=== PATIENT | male | born 1955 | race Caucasian/White ===

== ENCOUNTER 2024-03-01 17:38 | Inpatient (IN) | payer OTHER, SELFPAY ==
[2024-03-01] VITALS (14 sets, daily range): BP systolic 148–171; BP diastolic 74–116; BMI 29.7
--- NOTE | 2024-03-01 10:56 | ED.GENMED ---
History of Present Illness
General
Chief Complaint: Abdominal Pain
Source: patient
Exam Limitations: none
Time Seen by Provider: 03/01/24 10:25
History of Present Illness
History of Present Illness:
68-year-old male presents complaining of onset of mid and upper abdominal pain with associated vomiting. This started after having a rich meal yesterday. The pain is diffuse across the upper abdomen does not radiate to the back without chest pain.
No fever. He did note that when he was vomiting he noticed the vomit to be dark in color. He denies any dark or tarry stools. No fevers. No known sick contacts. No other complaints at this time. He admits to drinking a drink a day and 2 cups
of coffee a day. He does not use NSAIDs regularly
Phy Exam
Physical Exam
Physical Exam:
General: Slightly uncomfortable appearing male no acute respiratory distress
HEENT: Normocephalic atraumatic
Heart: Regular rate and rhythm no murmurs
Lungs: Clear no wheeze
Abdomen soft tender in the epigastric region negative Longo sign no guarding rebound normal bowel sounds nondistended no costovertebral angle tenderness
Extremities: No cyanosis
Course
Orders/Labs/Results
Orders:
Orders
03/01/24 09:54
ECG [Electrocardiogram (*1)] Urgent
Reason for Study: Abdominal Pain
EKG- Treatment ONCE
03/01/24 10:54
Famotidine [Pepcid] 20 mg IV NOW STA
US Abdomen Complete/Upper Urgent
Comment:
Reason For Exam: epigastric pain
03/01/24 10:59
Ondansetron Injectable [Zofran] 4 mg IV NOW STA
03/01/24 11:15
Complete Blood Count/With Diff Urgent
Comprehensive Metabolic Panel Urgent
Lipase Urgent
03/01/24 13:08
CT Abd/pelvis W Iv Cont Urgent
Comment:
Reason For Exam: mid abdominal pain
0.9% Sodium Chloride 1000 ml [Nss] 1,000 ml IV BOLUS
03/01/24 13:56
HYDROmorphone [Dilaudid] 0.5 mg IV NOW STA
03/01/24 16:24
HYDROmorphone [Dilaudid] 0.5 mg IV NOW STA
Ondansetron Injectable [Zofran] 4 mg IV NOW STA
Abnormal Lab Results
03/01/24
11:15
MCH 32.5 H pg
(27.0-31.0)
Abs Immat Gran (auto) 0.1 H 10^3/uL
(0-0.05)
Absolute Neuts (auto) 8.5 H 10^3/uL
(1.4-6.5)
Absolute Lymphs (auto) 1.1 L 10^3/uL
(1.2-3.4)
Absolute Monos (auto) 0.7 H 10^3/uL
(0.1-0.6)
Neutrophils % 81.8 H %
(42.2-75.2)
Lymphocytes % 10.2 L %
(20.5-51.1)
Glucose 135 H mg/dl
(70-99)
Calcium 10.6 H mg/dl
(8.4-10.2)
Total Bilirubin 1.9 H mg/dl
(0.2-1.3)
03/01/24 11:15
03/01/24 11:15
Vital Signs
Initial and Last Documented VS:
Initial Vital Signs
Temp Pulse Resp BP Pulse Ox
98.3 F 83 18 148/91 96
03/01/24 09:52 03/01/24 09:52 03/01/24 09:52 03/01/24 09:52 03/01/24 09:52
Last Documented Vital Signs
Temp Pulse Resp BP Pulse Ox
98.3 F 71 15 162/92 93
03/01/24 09:52 03/01/24 11:30 03/01/24 11:30 03/01/24 11:00 03/01/24 11:30
MDM/Problems Addressed
Differential Diagnosis Includes:
Abdominal pain with vomiting. Consider gastritis or peptic ulcer disease versus biliary colic versus viral illness. Also consider pancreatitis.
EKG through triage shows sinus rhythm without ischemic changes. Will check labs including lipase. David Ramey ordered. Ultrasound pending
*Critical Care Note
Total Time (30-74mins, 75-104mins- exclusive of procedures): Not Applicable
ED Attending Note
-
Portions of this chart may have been created with voice recognition software.� Occasional wrong word or��sound alike� substitutions may have occurred due to the inherent limitations of voice recognition software.
Discharge Plan
Departure
Patient Disposition: Admit
Date of Disposition: 03/01/24
Time of Disposition: 16:29
Admit to: Telemetry
Presentation/result/management discussed w/ accepting MD/DO: Hospitalist
Discharge Problem:
Enteritis
Referrals:
Chad Aguilar MD [Family Provider] -
Interventions
Interventions:
*Risk Screen - Suicide Last Done: 03/01/24 09:52
*General Assessment Last Done: 03/01/24 09:52
*Neglect/Abuse Screening Last Done: 03/01/24 09:52
PG-Glwzmi-Lghhramlwb Assessment Last Done: 03/01/24 11:39
Discharge Date and Time
Print Language: LUXEMBOURGER
[2024-03-01] MEDS: ZOFRAN 4 MG IV ×2 (11:15→16:30)
[2024-03-01] MEDS: PEPCID 20 MG IV (11:15)
[2024-03-01 12:02] LABS: ALT (SGPT) 30 U/L (0-50); AST (SGOT) 29 U/L (17-59); Albumin 4.7 g/dl (3.5-5.0); Alkaline Phosphatase 96 U/L (38-126); Blood Urea Nitrogen 17 mg/dl (9-20); Calcium 10.6 mg/dl (8.4-10.2); Carbon Dioxide 30 mmol/L (22-30); Chloride 100 mmol/L (98-107); Glucose 135 mg/dl (70-99); Lipase 63 U/L (23-300); Sodium 139 mmol/L (135-145); Total Bilirubin 1.9 mg/dl (0.2-1.3); Total Protein 7.4 g/dl (6.3-8.2); eGFR > 60.00
[2024-03-01 12:08] LABS: % Basophils 0.4 % (0-2); % Eosinophils 0.1 % (0-6); % Immature Granulocytes 0.5 % (0-0.5); % Lymphocytes 10.2 % (20.5-51.1); % Neutrophils 81.8 % (42.2-75.2); Absolute Immature Granulocytes 0.1 10^3/uL (0-0.05); Absolute Lymphocytes 1.1 10^3/uL (1.2-3.4); Absolute Monocytes 0.7 10^3/uL (0.1-0.6); Absolute Neutrophils 8.5 10^3/uL (1.4-6.5); Hematocrit 46.6 % (39.0-52.0); Hemoglobin 16.9 g/dL (13.0-18.0); Mean Corp Hgb Conc. 36.3 g/dL (33.0-37.0); Mean Corpuscular Hgb 32.5 pg (27.0-31.0); Mean Corpuscular Volume 89.6 fL (80.0-94.0); Mean Platelet Volume 9.7 fL (7.4-10.4); Nucleated Red Blood Cells % 0 % (-); Platelet Count 235 10^3/uL (130-400); Red Cell Dist. Width 12.8 % (11.5-14.5); White Blood Cell Count 10.4 10^3/uL (4.8-10.8)
[2024-03-01] MEDS: NSS 1000 IV ×2 (13:49→18:31)
[2024-03-01] MEDS: DILAUDID 0.5 MG IV ×4 (14:05→22:36)
--- NOTE | 2024-03-01 17:03 | HPS.HSE ---
Family Physician
-
Family Physician: Chad Aguilar
Chief Complaint
-
abdominal pain
History of Present Illness
68-year-old male past medical history of GERD presenting with mid and upper abdominal pain associated with vomiting since last night. Patient had a large meal at a restaurant yesterday with multiple other family members and had [place] sprouts
with Pasta and crab. Since last night he had severe epigastric pain and multiple episodes of vomiting of dark coffee-ground material. He also had loose stools and watery diarrhea yesterday and today without any blood in the stool or black stool.
He has also been burping a lot since yesterday with hiccups. Denies any shortness of breath. Did have some sweating with the vomiting.
He drinks 1-2 shots of vodka per day. He quit smoking 30 years ago. Denies regular NSAID use although he did have a tablet a few days ago for joint pain. He has recently been having indigestion recently a few times per week has been refusing to
take any medication for.
He traveled to [place] last month.
Denies any history of abdominal surgeries.
Medical History
Past Medical History
Past Medical History: Reports Other (GERD)
Past Surgical History: Reports None
Social History
Tobacco: Former Smoker
Alcohol: Daily
Drug: None
Family History
Family History: Not pertinent
Allergies / Home Medications
Allergies reflects when Allergies were last updated in [facility].
Home Medications with original date entered in [facility]
Allergy/Medication List:
Allergies
Allergy/AdvReac Type Severity Reaction Status Date / Time
No Known Allergies Allergy Verified 03/01/24 09:52
Review of Systems
-
History Source: Patient
A 12 point ROS was completed and negative except as noted: Yes
Constitutional: Reports No Symptoms
EENT: Reports No Symptoms
Respiratory: Reports No Symptoms
Cardiac: Reports No Symptoms
Abdomen/GI: Reports See HPI
: Reports No Symptoms
Musculoskeletal: Reports No Symptoms
Skin: Reports No Symptoms
Neurological: Reports No Symptoms
Endocrine: Reports No Symptoms
Hematologic/Lymphatic: Reports No Symptoms
Psych: Reports No Symptoms
Physical Exam
Vital Signs
Vital Signs
Temp Pulse Resp BP Pulse Ox
98.3 F 71 15 162/92 93
03/01/24 09:52 03/01/24 11:30 03/01/24 11:30 03/01/24 11:00 03/01/24 11:30
Physical Exam
General: Well Developed, Well Nourished and No Apparent Distress
HEENT: NormoCephalic, Moist mucous membranes and Atraumatic
Respiratory: Clear
Cardiac: S1/S2 and Regular Rhythm; No Murmur or Rub
GI: Soft, Non Distended, Normal Bowel Sounds and Tender (epigastric ); No Organomegaly
Rectal: Deferred by Provider
Musculoskeletal: No Clubbing, No Cyanosis and No Edema
Skin: No Rash
Neuro: Nonfocal/grossly intact
Laboratory Results
-
03/01/24 11:15
03/01/24 11:15
Laboratory Results
Total Bilirubin 1.9 mg/dl (0.2-1.3) H 03/01/24 11:15
AST 29 U/L (17-59) 03/01/24 11:15
ALT 30 U/L (0-50) 03/01/24 11:15
Alkaline Phosphatase 96 U/L (38-126) 03/01/24 11:15
Lipase 63 U/L (23-300) 03/01/24 11:15
Data Reviewed
-
Lab Data: Labs Reviewed by me
Old Records: Reviewed
Impression/Plan
-
IMPRESSION:
PLAN:
# Epigastric pain/coffee-ground emesis secondary to acute gastroenteritis with ileus/acute gastritis
# History of GERD
-Lipase unremarkable
-CT abdomen pelvis shows dilated air and fluid-filled proximal small bowel loops measuring up to 3.8 cm, no discrete transition point
-N.p.o.
-IV fluids
-Zofran, Dilaudid as needed
-Protonix 40 IV twice daily
-Check stool culture, C. difficile, ova and parasites
-GI consulted
Daily alcohol use
Former smoker
Full code
DVT prophylaxis�SCDs
N.p.o.
[2024-03-01] MEDS: NSS (PRESERVATIVE FREE) 10 ML IV (20:01)
[2024-03-01] MEDS: PROTONIX IV 40 MG IV (20:02)
[2024-03-02] MEDS: DILAUDID 0.5 MG IV (03:00)
[2024-03-02] MEDS: NSS 1000 IV ×2 (03:01→13:17)
[2024-03-02 07:50] VITALS: BP 146/87
[2024-03-02 08:22] LABS: % Basophils 0.6 % (0-2); % Eosinophils 2.2 % (0-6); % Immature Granulocytes 0.4 % (0-0.5); % Lymphocytes 25.6 % (20.5-51.1); % Monocytes 8.5 % (1.7-9.3); % Neutrophils 62.7 % (42.2-75.2); Absolute Basophils 0.1 10^3/uL (0-0.2); Absolute Eosinophils 0.2 10^3/uL (0-0.7); Absolute Monocytes 0.7 10^3/uL (0.1-0.6); Absolute Neutrophils 4.9 10^3/uL (1.4-6.5); Hemoglobin 14.4 g/dL (13.0-18.0); Mean Corp Hgb Conc. 34.3 g/dL (33.0-37.0); Mean Corpuscular Hgb 32.1 pg (27.0-31.0); Mean Corpuscular Volume 93.8 fL (80.0-94.0); Mean Platelet Volume 9.7 fL (7.4-10.4); Nucleated Red Blood Cells % 0 % (-); Platelet Count 190 10^3/uL (130-400); Red Blood Cell Count 4.48 10^6/uL (4.70-6.10); White Blood Cell Count 7.8 10^3/uL (4.8-10.8)
[2024-03-02 08:56] LABS: ALT (SGPT) 22 U/L (0-50); AST (SGOT) 24 U/L (17-59); Albumin 3.6 g/dl (3.5-5.0); Alkaline Phosphatase 73 U/L (38-126); Blood Urea Nitrogen 16 mg/dl (9-20); Carbon Dioxide 27 mmol/L (22-30); Chloride 107 mmol/L (98-107); Estimated Creatinine Clearance 70 ml/min; Glucose 89 mg/dl (70-99); Potassium 3.8 mmol/L (3.5-5.1); Sodium 140 mmol/L (135-145); Total Bilirubin 1.8 mg/dl (0.2-1.3); eGFR > 60.00
[2024-03-02] MEDS: NSS (PRESERVATIVE FREE) 10 ML IV ×2 (09:01→20:11)
--- NOTE | 2024-03-02 09:07 | CON.GI ---
Addendum entered and electronically signed by MARIAH Emmanuel 03/04/24 20:49:
clarification pt with likely Frieda addison tear on admission now resolved
Addendum entered and electronically signed by Tomasz Kelley MD 03/02/24 17:06:
I saw and examined the patient.
The CHEMICAL DEPENDENCY COUNSELOR or PA's note was reviewed and I agree with the note.
Comment: 68yo male presents with abd pain, vomiting after eating out at restaurant pasta, crab, brussel sprouts. Sx started about 6 hrs after eating. Had some dark emesis after recurrent vomiting. Prior to that he had no GI complaints. US shows
decompressed GB vs GBWT. CT shows dilated air and fluid-filled proximal SB loops up to 3.8cm c/w ileus/enteritis without obstruction. LFTs normal
REC:
Continue supportive care
check stool studies if available, check norovirus
Ok for clears and advance as tolerated
Monitor Hgb, would hold off on EGD if no further CGE- likely gastritis/Renee-Addison tear from vomiting that has resolved
US findings likely due to underdistention of GB. Consider further imaging if symptoms do not resolve
Addendum entered and electronically signed by MARIAH Emmanuel 03/02/24 10:53:
pt denies any recent travel. Prior travel to [place] in December
Original Note:
Consultation
-
Date/Time Consultation Requested: 03/01/24 [id number]
Date/Time Consultation Performed: 03/02/24 0900
Requesting Provider: Kassi Salinas MD
Performing Provider: MARIAH Bunch, Tomasz Kelley MD
Reason for Consultation: enteritis/ dark emesis
Medical History
Chief Complaint / HPI
Chief Complaint: nausea/vomiting/diarrhea
History of Present Illness:
Pt is a 68yo with hx GERD present with mid and upper abdominal pain with vomiting dark emesis. Pt ate large meal with brussel spouts, pasta and crab prior to onset. On admission lab with stable CBC and chemistry with mild, bili elevation of 1.8.
Ct suggest SB ileus/enteritis without obstruction and US with decompressed GB with no stones, acute cholecystitis, mild GBWT more likely non distention rather than acute cholecystis, no biliary dilation, pancreas not seen. In reviewing with patient
noted with sudden onset of symptoms and reports dark emesis with about 7-8 episode of large volume. He then noted bloating, increased upper abdominal pain and diarrhea. No hx prior GI issues and denies NSAID use. No hx EGD in past but prior
colonoscopy with family hx colon CA in father.
Pt denies odynophagia, dysphagia, GERD, blood or black in stools.
Past Medical History
Past Medical History: GERD (mild) and Other (ETOH use 1 glass daily, family hx colon CA, personal hx colon polyps )
Social History
Tobacco: Former Smoker
Alcohol: Daily (1 drink daily )
Drug: None
Personal:
Living: With Family
Employment: Retired
Family History
Family History: Other (father with colon CA in 40's)
Allergies / Home Medications
Allergy/AdvReac Type Severity Reaction Status Date / Time
No Known Allergies Allergy Verified 03/01/24 09:52
�Medication �Instructions �Recorded
azelastine 137 mcg (0.1 %) nasal 2 spray intranasal BID Congestion 03/01/24
spray
Review of Systems
-
History Source: Patient
Constitutional: Reports Fatigue
EENT: Reports No Symptoms
Respiratory: Reports No Symptoms
Cardiac: Reports No Symptoms
Abdomen/GI: Reports Abdominal Pain, Nausea, Vomiting (dark emesis ) and Diarrhea
Skin: Reports No Symptoms
Neurological: Reports Weakness
Endocrine: Reports No Symptoms
Hematologic/Lymphatic: Reports Bleeding (dark emesis )
Vital Signs
Temp Pulse Resp BP Pulse Ox
97.7 F 74 20 146/87 93
03/02/24 07:50 03/02/24 07:50 03/02/24 07:50 03/02/24 07:50 03/02/24 07:50
Physical Exam
Exam
General: Well Developed, Well Nourished and No Apparent Distress
HEENT: Normocephalic and Anicteric
Respiratory: Clear
Cardiac: Regular Rhythm
GI: Soft, Tender (mild) and Distended (mild )
Musculoskeletal: No Clubbing and No Cyanosis
Skin: Warm and Dry
Neuro: Awake, Alert and AO x 3
Psych: Calm
Results
WBC 7.8 10^3/uL (4.8-10.8) 03/02/24 06:57
Hgb 14.4 g/dL (13.0-18.0) 03/02/24 06:57
Hct 42.0 % (39.0-52.0) 03/02/24 06:57
MCV 93.8 fL (80.0-94.0) 03/02/24 06:57
Plt Count 190 10^3/uL (130-400) 03/02/24 06:57
Absolute Neuts (auto) 4.9 10^3/uL (1.4-6.5) 03/02/24 06:57
Sodium 140 mmol/L (135-145) 03/02/24 06:57
Potassium 3.8 mmol/L (3.5-5.1) 03/02/24 06:57
Chloride 107 mmol/L (98-107) 03/02/24 06:57
Carbon Dioxide 27 mmol/L (22-30) 03/02/24 06:57
BUN 16 mg/dl (9-20) 03/02/24 06:57
Creatinine 1.0 mg/dL (0.7-1.3) 03/02/24 06:57
Calcium 9.0 mg/dl (8.4-10.2) D 03/02/24 06:57
Total Bilirubin 1.8 mg/dl (0.2-1.3) H 03/02/24 06:57
AST 24 U/L (17-59) 03/02/24 06:57
ALT 22 U/L (0-50) 03/02/24 06:57
Alkaline Phosphatase 73 U/L (38-126) 03/02/24 06:57
Lipase 63 U/L (23-300) 03/01/24 11:15
Diagnostic Image Results:
03/01/24 US abdomen
1. Gallbladder is decompressed. No gallstones are seen. No suggestive of acute cholecystitis. Mild gallbladder wall thickening is more likely related to nondistention rather than acute cholecystitis.
2. No biliary ductal dilation.
3. Pancreas was not well visualized due to overlying bowel gas.
03/01/24 CT A/p with IV consult
1. Findings suggesting small bowel ileus/enteritis without vargas obstruction.
Prior GI Procedures:
EGD: none
Colonoscopy: Dr. Pisano hx polyps and family hx colon CA with screening every 5 years
Assessment / Plan
-
Pt is a 68yo with hx GERD present with mid and upper abdominal pain with vomiting dark emesis. Pt ate large meal with brussel spouts, pasta and crab prior to onset. On admission lab with stable CBC and chemistry with mild, bili elevation of 1.8.
Ct suggest SB ileus/enteritis without obstruction and US with decompressed GB with no stones, acute cholecystitis, mild GBWT more likely non distention rather than acute cholecystis, no biliary dilation, pancreas not seen. In reviewing with patient
noted with sudden onset of symptoms and reports dark emesis with about 7-8 episode of large volume. He then noted bloating, increased upper abdominal pain and diarrhea. No hx prior GI issues and denies NSAID use. No hx EGD in past but prior
colonoscopy with family hx colon CA in father.
-sudden onset of nausea/vomiting/abdominal pain and diarrhea
-CT with SB ileus/enteritis
-dark emesis
-hx mild GERD
-hx colon polyps
-family hx colon CA
PLAN:
etiology of symptoms with concern for acute gastroenteritis- norovirus vs other
pt with some improvement will trial sips of clears and supportive care
monitor for recurrent symptoms
check stools studies
add norovirus
if continued dark emesis consider EGD but hold for now current hbg 14.4
if ongoing symptoms consider OP MR enterography
follow up with Dr. Pisano know GI prior to admission
will follow
-
-
Thank you for consultation and allowing me to participate in the patient's care. Please call the material controller GI physician during the after hours with any questions or concerns.
[2024-03-02] MEDS: PROTONIX IV 40 MG IV ×2 (09:10→20:11)
--- NOTE | 2024-03-02 14:27 | W.PN.HOSP.TC ---
Today's Communication/Plan
-
progress to clear liquids
continue IVF
Assessment / Plan
Assessment / Plan
# Epigastric pain/coffee-ground emesis secondary to acute gastroenteritis with ileus/acute gastritis
chronic 'indigestion'/reflux
# History of GERD
-Lipase unremarkable
Abd US: 1. Gallbladder is decompressed. No gallstones are seen. No suggestive of acute cholecystitis. Mild gallbladder wall thickening is more likely related to nondistention rather than acute cholecystitis.
2. No biliary ductal dilation.
3. Pancreas was not well visualized due to overlying bowel gas.
-CT abdomen pelvis: Trace perihepatic ascites. No enlarged lymph nodes or free air. Dilated air and fluid-filled proximal small bowel loops measuring up to 3.8 cm. No discrete transition point with smooth tapering distally in the right lower
quadrant. Diverticulosis coli without evidence for diverticulitis. The bowel is without evidence of perforation or abscess.
-N.p.o. advance to clear liquid
-IV fluids
-Zofran, Dilaudid as needed
-Protonix 40 IV twice daily
-Check stool culture, C. difficile, ova and parasites, (no BM's yet today)
-GI consulted
Daily alcohol use
Former smoker
Full code
DVT prophylaxis�SCDs
Anticipated Discharge: 24 - 48 hours
Subjective/Interval History
-
Date of Service: March 02, 2024
No further vomiting
Objective Data
-
Labs:
Laboratory Results
03/02/24
06:57
WBC 7.8
Hgb 14.4
Hct 42.0
Plt Count 190
Sodium 140
Potassium 3.8
Chloride 107
Carbon Dioxide 27
BUN 16
Creatinine 1.0
Glucose 89
Calcium 9.0 D
Total Bilirubin 1.8 H
AST 24
ALT 22
Alkaline Phosphatase 73
Vital Signs:
Vital Signs
Temp Pulse Resp BP Pulse Ox
97.7 F 74 20 146/87 97
03/02/24 07:50 03/02/24 07:50 03/02/24 07:50 03/02/24 07:50 03/02/24 11:15
Review of Systems
-
History Source: Patient and Family ( at bedside)
Constitutional: Denies Fever
EENT: Reports No Symptoms Reported
Respiratory: Reports No Symptoms; Denies Cough
Cardiac: Reports No Symptoms
Abdomen/GI: Reports Nausea; Denies Abdominal Pain
Musculoskeletal: Reports No Symptoms
Physical Exam
-
General: Well Developed, Well Nourished and No Apparent Distress
HEENT: Normocephalic, Atraumatic and Moist Mucous Membranes
Respiratory: Clear to Auscultation; Negative Wheezes, Rales or Rhonchi
Cardiac: Regular Rhythm and S1/S2
GI: Soft, Nontender, Nondistended and Normal Bowel Sounds
Musculoskeletal: No Clubbing, No Cyanosis and No Edema
[2024-03-02 15:55] VITALS: BP 168/91
--- NOTE | 2024-03-02 16:09 | CM ---
Patient seen at bedside with present. Patient stated that he lives with his in a 3 story home. Patient with no needs anticipated at this time. Patient does not have any DME at home. Patient stated that he was independent of ADLs and IADL's
prior to admission. Patient PCP is Dr. Aguilar and he uses the [facility] in [place]. CM will continue to follow for discharge planning needs.
Plan; home with no needs anticipated at this time
--- NOTE | 2024-03-02 17:30 | PTCARENOTE ---
Pt advanced to clears; tolerating small amounts. Did complain of some belching, resolved on its own. No c/o pain or discomfort at present. No BM's this shift.
[2024-03-02] MEDS: MELATONIN 5 MG PO (22:28)
[2024-03-02 23:32] VITALS: BP 167/97
[2024-03-03] MEDS: NSS 1000 IV ×2 (00:11→10:36)
--- NOTE | 2024-03-03 03:15 | DOWNTIME ---
There was a [employer] Client [employer] Downtime on 03/03/2024 from 0100 to 03/03/2024 at 0252. Downtime documentation of patient's care, including medication administrations, has been reconciled in the electronic record per guidelines. Refer to the
patient's paper chart under the miscellaneous tab to see printed paper medication records and downtime forms.
--- NOTE | 2024-03-03 07:08 | W.PN.GI.CBS2 ---
Addendum entered and electronically signed by Tomasz Kelley MD 03/03/24 13:59:
I saw and examined the patient.
The CONTINGENTS SUPERVISOR or PA's note was reviewed and I agree with the note.
Comment: Tolerated solids for lunch without any problems. Denies abd pain
REC:
OK for d/c
Probable infectious enteritis that has resolved
Original Note:
Today's Communication / Plan
-
etiology of symptoms with concern for acute gastroenteritis- norovirus vs other
tolerated clear diet from yesterday afternoon and taking more this am-- will trial low residue diet today
monitor for recurrent symptoms
cbc stable comp pending
check stools studies including norovirus
monitor for recurrent dark emesis-- if recurrent of drop in hbg or recurrent vomiting consider EGD
if ongoing symptoms consider OP MR enterography with enteritis noted on CT
follow up with Dr. Pisano know GI prior to admission
will follow
Assessment / Plan
-
Pt is a 68yo with hx GERD present with mid and upper abdominal pain with vomiting dark emesis. Pt ate large meal with brussel spouts, pasta and crab prior to onset. On admission lab with stable CBC and chemistry with mild, bili elevation of 1.8.
Ct suggest SB ileus/enteritis without obstruction and US with decompressed GB with no stones, acute cholecystitis, mild GBWT more likely non distention rather than acute cholecystis, no biliary dilation, pancreas not seen. In reviewing with patient
noted with sudden onset of symptoms and reports dark emesis with about 7-8 episode of large volume. He then noted bloating, increased upper abdominal pain and diarrhea. No hx prior GI issues and denies NSAID use. No hx EGD in past but prior
colonoscopy with family hx colon CA in father.
-sudden onset of nausea/vomiting/abdominal pain and diarrhea
-CT with SB ileus/enteritis
-dark emesis
-hx mild GERD
-hx colon polyps
-family hx colon CA
PLAN:
etiology of symptoms with concern for acute gastroenteritis- norovirus vs other
tolerated clear diet from yesterday afternoon and taking more this am-- will trial low residue diet today
monitor for recurrent symptoms
CBC stable, comp pending
check stools studies including norovirus
monitor for recurrent dark emesis-- if recurrent of drop in hbg or recurrent vomiting consider EGD
if ongoing symptoms consider OP MR enterography with enteritis noted on CT
follow up with Dr. Pisano know GI prior to admission
will follow
Subjective
Subjective
Date of Service: March 03, 2024
on clear diet, no stools
Objective
Data Reviewed
Laboratory Data:
Laboratory Results
Total Bilirubin 1.8 mg/dl (0.2-1.3) H 03/02/24 06:57
AST 24 U/L (17-59) 03/02/24 06:57
ALT 22 U/L (0-50) 03/02/24 06:57
Alkaline Phosphatase 73 U/L (38-126) 03/02/24 06:57
Lipase 63 U/L (23-300) 03/01/24 11:15
Vital Signs and I&O:
Vital Signs
Temp Pulse Resp BP Pulse Ox
98.0 F 72 18 167/97 100
03/02/24 23:32 03/02/24 23:32 03/02/24 23:32 03/02/24 23:32 03/02/24 23:32
I&O
03/02/24 03/03/24 03/04/24
06:59 06:59 06:59
Intake Total 2339 / 2340
Balance 2340 / 2340
Physical Exam
Physical Exam
HEENT: Anicteric and Moist mucous membranes
Cardiology: Normal Sinus Rhythm
Pulmonary: Clear
GI: Soft, Non Distended and Non Tender
Extremities: No Edema
Neuro: Non Focal
[2024-03-03 08:00] VITALS: BP 176/93
[2024-03-03] MEDS: PROTONIX IV 40 MG IV (08:19)
[2024-03-03] MEDS: NSS (PRESERVATIVE FREE) 10 ML IV (08:19)
[2024-03-03 09:14] LABS: % Basophils 0.7 % (0-2); % Eosinophils 2.7 % (0-6); % Immature Granulocytes 0.7 % (0-0.5); % Lymphocytes 24.7 % (20.5-51.1); % Neutrophils 65.2 % (42.2-75.2); Absolute Basophils 0.1 10^3/uL (0-0.2); Absolute Eosinophils 0.2 10^3/uL (0-0.7); Absolute Immature Granulocytes 0.1 10^3/uL (0-0.05); Absolute Lymphocytes 1.7 10^3/uL (1.2-3.4); Absolute Monocytes 0.4 10^3/uL (0.1-0.6); Absolute Neutrophils 4.6 10^3/uL (1.4-6.5); Hematocrit 44.8 % (39.0-52.0); Hemoglobin 15.8 g/dL (13.0-18.0); Mean Corp Hgb Conc. 35.3 g/dL (33.0-37.0); Mean Corpuscular Hgb 32.5 pg (27.0-31.0); Mean Corpuscular Volume 92.2 fL (80.0-94.0); Mean Platelet Volume 9.7 fL (7.4-10.4); Nucleated Red Blood Cells % 0 % (-); Platelet Count 195 10^3/uL (130-400); Red Blood Cell Count 4.86 10^6/uL (4.70-6.10); Red Cell Dist. Width 12.3 % (11.5-14.5)
[2024-03-03 09:43] LABS: ALT (SGPT) 37 U/L (0-50); AST (SGOT) 36 U/L (17-59); Albumin 4.1 g/dl (3.5-5.0); Alkaline Phosphatase 82 U/L (38-126); Blood Urea Nitrogen 12 mg/dl (9-20); Calcium 9.4 mg/dl (8.4-10.2); Carbon Dioxide 28 mmol/L (22-30); Chloride 104 mmol/L (98-107); Estimated Creatinine Clearance 78 ml/min; Glucose 84 mg/dl (70-99); Potassium 4.3 mmol/L (3.5-5.1); Sodium 139 mmol/L (135-145); Total Bilirubin 2.2 mg/dl (0.2-1.3); Total Protein 6.7 g/dl (6.3-8.2); eGFR > 60.00
--- NOTE | 2024-03-03 13:04 | CM ---
Diet to advance home no needs.
Plan; Home no needs.
[2024-03-03 15:00] VITALS: BP 165/90
--- NOTE | 2024-03-03 15:30 | W.PN.HOSP.TC ---
Today's Communication/Plan
-
dc to home
Assessment / Plan
Assessment / Plan
# Epigastric pain/coffee-ground emesis secondary to acute gastroenteritis with ileus/acute gastritis
chronic 'indigestion'/reflux
# History of GERD
-Lipase unremarkable
Abd US: 1. Gallbladder is decompressed. No gallstones are seen. No suggestive of acute cholecystitis. Mild gallbladder wall thickening is more likely related to nondistention rather than acute cholecystitis.
2. No biliary ductal dilation.
3. Pancreas was not well visualized due to overlying bowel gas.
-CT abdomen pelvis: Trace perihepatic ascites. No enlarged lymph nodes or free air. Dilated air and fluid-filled proximal small bowel loops measuring up to 3.8 cm. No discrete transition point with smooth tapering distally in the right lower
quadrant. Diverticulosis coli without evidence for diverticulitis. The bowel is without evidence of perforation or abscess.
-tolerating diet
-IV fluids
-Zofran, Dilaudid as needed
-Protonix 40 orally
-No further diarrhea, thus no stool culture, C. difficile, ova and parasites,
-GI consulted
Daily alcohol use
importance of decrease intake discussed
Former smoker
Full code
DVT prophylaxis�SCDs
reviewed with at bedside
More than 30 minutes spent in discharge including
Final examination of the patient
Summarizing hospital stay
Instructions for continuing care to all relevant caregivers
Preparation of discharge records, prescriptions, and referral forms
Total time spent (in minutes): 45
Anticipated Discharge: Today
Subjective/Interval History
-
Date of Service: March 03, 2024
Feels well, tolerated lunch
Objective Data
-
Labs:
Laboratory Results
03/03/24
08:37
WBC 7.0
Hgb 15.8
Hct 44.8
Plt Count 195
Sodium 139
Potassium 4.3
Chloride 104
Carbon Dioxide 28
BUN 12
Creatinine 0.9
Glucose 84
Calcium 9.4
Total Bilirubin 2.2 H
AST 36
ALT 37
Alkaline Phosphatase 82
Vital Signs:
Vital Signs
Temp Pulse Resp BP Pulse Ox
97.9 F 71 18 176/93 97
03/03/24 08:00 03/03/24 08:00 03/03/24 08:00 03/03/24 08:00 03/03/24 08:00
I&O
03/02/24 03/03/24 03/04/24
06:59 06:59 06:59
Intake Total 2340 / 2340
Balance 2340 / 2340
Review of Systems
-
History Source: Patient and Family ( at bedside)
Constitutional: Denies Fever
EENT: Reports No Symptoms Reported
Respiratory: Reports No Symptoms; Denies Cough
Cardiac: Reports No Symptoms
Abdomen/GI: Reports Nausea; Denies Abdominal Pain
Musculoskeletal: Reports No Symptoms
Physical Exam
-
General: Well Developed, Well Nourished and No Apparent Distress
HEENT: Normocephalic, Atraumatic and Moist Mucous Membranes
Respiratory: Clear to Auscultation; Negative Wheezes, Rales or Rhonchi
Cardiac: Regular Rhythm and S1/S2
GI: Soft, Nontender, Nondistended and Normal Bowel Sounds
Musculoskeletal: No Clubbing, No Cyanosis and No Edema
--- NOTE | 2024-03-03 15:42 | W.DS.TRANS ---
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
-
Discharge Instructions:
Discharge Diagnosis/Procedures Gastroenteritis
Diet Regular,Low Fat,Low Fiber
Activity No restrictions
Driving Restrictions No driving for 24 hours
Bathing Restrictions None
Instructions:
Stand-Alone Forms:
Changes to Home Medications: Yes
Discharge Medications:
DC Medications w/original date entered in [facility]
azelastine 137 mcg (0.1 %) nasal spray 2 spray intranasal BID Congestion 03/01/24
pantoprazole 40 mg granules delayed-release for susp in packet (Protonix) 40 mg PO DAILY #30 ea 03/03/24
Home Medication Changes
short term Protonix ordered
Pending Results: No
--- NOTE | 2024-03-03 20:08 | W.DS.TRANS ---
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
-
Discharge Instructions:
Discharge Diagnosis/Procedures Gastroenteritis
Diet Regular,Low Fat,Low Fiber
Activity No restrictions
Driving Restrictions No driving for 24 hours
Bathing Restrictions None
Blood Work CBC, CMP in 1-2 weeks
Instructions:
Stand-Alone Forms:
Changes to Home Medications: Yes
Discharge Medications:
DC Medications w/original date entered in [facility]
azelastine 137 mcg (0.1 %) nasal spray 2 spray intranasal BID Congestion 03/01/24
pantoprazole 40 mg granules delayed-release for susp in packet (Protonix) 40 mg PO DAILY #30 ea 03/03/24
Home Medication Changes
Protonix for next several weeks
Pending Results: No
--- NOTE | 2024-03-04 14:11 | PN.CDI ---
CDI
- -
CDI:
Physician Documentation Request
Admit Date: 03/01/24 17:38
Dear Kori Osorio NP,
Please review the following and provide your response in the progress notes.
Clinical Indicators:
The diagnosis of Renee-Aldridge tear was documented on GI consult but is not consistently noted in subsequent documentation.
Other: GI consult, ' Had some dark emesis after recurrent vomiting.Monitor Hgb, would hold off on EGD if no further CGE- likely gastritis/Renee-Aldridge tear from vomiting that has resolved...'
Please clarify the following:
____ - Renee-Aldridge tear was present on admission and is now resolved.
____ - Renee-Aldridge tear was ruled out
____ - Other
Use of terms such as suspected, likely, concern for, or probable (associated with a specific diagnosis that is being evaluated, monitored, or treated as if it exists) are acceptable and can be coded in the inpatient setting, when documented at the
time of discharge.
Thank you,
Briseida Henry RN
CDI Specialist
[place] [facility]
Please use your independent medical judgment in providing your response.
== END 2024-03-03 17:05 | disposition home or self-care (01) | DRG 391 ==
LOC: 4 WEST ACU 17:38
PROVIDERS: Physician Assistant; ADMITTING PHYSICIAN Hospitalist; ATTENDING PHYSICIAN Internal Medicine; EMERGENCY PHYSICIAN Student in an Organized Health Care Education/Training Program; FAMILY PHYSICIAN Family Medicine; OTHER PHYSICIAN Specialist
DX: A05.9 Bacterial foodborne intoxication, unspecified (principal); K22.6 Gastro-esophageal laceration-hemorrhage syndrome; K56.7 Ileus, unspecified; K52.9 Noninfective gastroenteritis and colitis, unspecified; K21.9 Gastro-esophageal reflux disease without esophagitis; F10.90 Alcohol use, unspecified, uncomplicated; Z87.891 Personal history of nicotine dependence; Z86.010 Personal history of colon polyps; Z80.0 Family history of malignant neoplasm of digestive organs
CPT/HCPCS: 74177; 76700; 80053; 83690; 85025; 93005; 96361; 96374; 96375; 96376; 99285; Q9967